=== PATIENT | male | born 1975 | race Caucasian/White ===

== ENCOUNTER 2018-04-30 17:42 | Emergency (ER) | payer MEDICAID ==
[2018-04-30] MEDS ORDERED: Buprenorphine/Naloxone 8-2 MG SL TAB* 1 TAB PO ONE (18:03)
--- NOTE | 2018-04-30 18:03 | ED ---
Substance Abuse/Use - HPI Summary HPI Summary: 43 y/o male presents to the ED c/o SI thoughts with no plan. Pt also c/o constant "pain all over".Pt states he is in "a lot of pain". Associated sx: ABD pain, nausea, per triage note. Sx not alleviated by anything. Pt uses heroin ( IV and oral), and has been daily for around a year. Pt last used a couple of days ago. Pt seeking rehab. - History Of Current Complaint Chief Complaint: EDMentalHealth Stated Complaint: MHE/SI Time Seen by Provider: 04/30/18 17:56 Hx Obtained From: Patient Overdose Characteristics: Oral, IV Timing Of Abuse: Daily Character: Other - "in pain" Alleviating Factor(s): Nothing Associated Signs And Symptoms: Nausea, Other: - "pain all over", ABD pain, SI thoughts - Allergies/Home Medications Allergies/Adverse Reactions: Allergies Allergy/AdvReac Type Severity Reaction Status Date / Time No Known Allergies Allergy Verified 09/08/13 13:45 PMH/Surg Hx/FS Hx/Imm Hx Previously Healthy: No Cardiovascular History: Denies: Hx Congestive Heart Failure Psychiatric History: Reports: Other Psychiatric Issues/Disorders - Panic attacks Infectious Disease History: No Infectious Disease History: Reports: Hx Hepatitis - C Denies: Traveled Outside the [place] in Last 30 Days - Family History Known Family History: Positive: Unknown - Social History Alcohol Use: unknown Hx Substance Use: Yes Substance Use Type: Reports: Heroin Smoking Status (MU): Unknown if Ever Smoked Review of Systems Positive: Other - withdrawal symptoms - "in a lot of pain" Eyes: Negative ENT: Negative Cardiovascular: Negative Respiratory: Negative Positive: Abdominal Pain, Nausea Genitourinary: Negative Musculoskeletal: Negative Skin: Negative Neurological: Negative Positive: Other - SI thoughts no plan All Other Systems Reviewed And Are Negative: Yes Physical Exam - Summary Physical Exam Summary: Appearance: The patient is visibly in moderate withdrawal with a COWS score of 13. Skin: The skin is warm and dry and skin color reflects adequate perfusion. HEENT: The head is normocephalic and atraumatic. The pupils are equal and reactive. The conjunctivae are clear and without drainage. Nares are patent and without drainage. Mouth reveals moist mucous membranes and the throat is without erythema and exudate. The external ears are intact. The ear canals are patent and without drainage. The tympanic membranes are intact. Neck: The neck is supple with full range of motion and non-tender. There are no carotid bruits. There is no neck vein distension. Respiratory: Chest is non-tender. Lungs are clear to auscultation and breath sounds are symmetrical and equal. Cardiovascular: Heart is regular rate and rhythm. There is no murmur or rub auscultated. There is no peripheral edema and pulses are symmetrical and equal. Abdomen: The abdomen is soft and non-tender. There are normal bowel sounds heard in all four quadrants and there is no organomegaly palpated. Musculoskeletal: There is no back tenderness noted. Extremities are non-tender with full range of motion. There is good capillary refill. There is no peripheral edema or calf tenderness elicited. Neurological: Patient is alert and oriented to person, place and time. The patient has symmetrical motor strength in all four extremities. Cranial nerves are grossly intact. Deep tendon reflexes are symmetrical and equal in all four extremities. Psychiatric: The patient has an appropriate affect and does not exhibit any anxiety or depression. Triage Information Reviewed: Yes Vital Signs On Initial Exam: Initial Vitals Temp Pulse Resp BP Pulse Ox 98.2 F 86 16 133/70 100 04/30/18 17:46 04/30/18 17:46 04/30/18 17:46 04/30/18 17:46 04/30/18 17:46 Vital Signs Reviewed: Yes Diagnostics - Vital Signs Vital Signs Temp Pulse Resp BP Pulse Ox 04/30/18 17:46 98.2 F 86 16 133/70 100 - Laboratory Lab Statement: Any lab studies that have been ordered have been reviewed, and results considered in the medical decision making process. Re-Evaluation - Re-Evaluation 1 Re-Evaluation Time: 19:08 Comment: first post-suboxone check Course/Dx - Course Course Of Treatment: Mr. Corado presented to the emergency department stating that he does heroin every day for about the last year. Sometimes he injects and sometimes he snorts. 2 days ago he stopped and he has an appointment at 3: 30 tomorrow afternoon with the rehabilitation clinic in [place]. He wasn' t instructed to stop but was instructed to arrive and he would go through detox there. He was in moderate withdrawal with a COWs scale of 13-15. He agreed to be given some Suboxone here in the emergency department and we started with 2 mg which he tolerated well. He was then given 6 mg and got significant improvement. He was not willing to wait any longer here in the emergency department to get complete relief. 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 - Diagnoses Provider Diagnoses: Opiate use Discharge - Sign-Out/Discharge Documenting (check all that apply): Patient Departure - Discharge Plan Condition: Stable Disposition: HOME Prescriptions: Buprenorphine/Naloxone SL TAB* [Suboxone 8-2 mg SL TAB*] 1 tab.sl SL DAILY #1 tab.sl MDD 1 Buprenorphine/Naloxone SL TAB* [Suboxone 8-2 mg SL TAB*] 1 tab.sl SL DAILY #1 tab.sl MDD 1 Patient Education Materials: Opioid Dependence (ED), Opioid Withdrawal (ED) Referrals: Nitin Winston MD [Primary Care Provider] - Additional Instructions: PLEASE F/U WITH [facility] TOMORROW, DISCUSSED - Billing Disposition and Condition Condition: STABLE Disposition: Home
[2018-04-30] MEDS ORDERED: Buprenorphine/Naloxone 8-2 MG SL TAB* 1 TAB PO PRN (19:15)
[2018-04-30 20:09] VITALS: BP 139/79
== END 2018-04-30 20:07 | disposition home or self-care (01) ==
LOC: ED 17:42
DX: F11.10 Opioid abuse, uncomplicated (principal)
CPT/HCPCS: 99285; A9270-GY